=== PATIENT | male | born 1960 | race Caucasian/White ===

== ENCOUNTER 2020-10-04 13:31 | Emergency (ER) | payer MEDICARE, OTHER ==
[~2020-10-04] VITALS: Ht 172.7 cm; Wt 69.9 kg
[2020-10-04 13:34] VITALS: BP 124/85
== END 2020-10-04 13:55 | disposition home or self-care (01) ==
LOC: ED 13:46
DX: K02.9 Dental caries, unspecified (principal)
CPT/HCPCS: 99283